=== PATIENT | male | born 1960 | race Caucasian/White ===

== ENCOUNTER 2018-11-08 01:10 | Emergency (ER) | payer BC ==
[2018-11-08] MEDS ORDERED: Sodium Chloride 0.9% 1,000 ML IV ONE ×3 (01:16→03:27)
--- NOTE | 2018-11-08 01:22 | EDM.PDOC ---
ED HPI GENERAL MEDICAL PROBLEM - General Chief Complaint: Abdominal Pain Stated Complaint: INTESTINAL BLOCKAGE Time Seen by Provider: 11/08/18 03:23 - History of Present Illness INITIAL COMMENTS - FREE TEXT/NARRATIVE: HISTORY AND PHYSICAL: History of present illness: Patient 58-year-old male history of ulcerative colitis has had multiple abdominal surgeries including colectomy and presents with concern of nausea vomiting possible bowel obstruction he does have a ostomy he denies fever chills trauma states he had similar episodes in the past denies chest pain or shortness of breath Review of systems: As per history of present illness and below otherwise all systems reviewed and negative. Past medical history: As per history of present illness and as reviewed below otherwise noncontributory. Surgical history: As per history of present illness and as reviewed below otherwise noncontributory. Social history: No reported history of drug or alcohol abuse. Family history: As per history of present illness and as reviewed below otherwise noncontributory. Physical exam: HEENT: Atraumatic, normocephalic, pupils reactive, negative for conjunctival pallor or scleral icterus, mucous membranes moist, throat clear, neck supple, nontender, trachea midline. Lungs: Clear to auscultation, breath sounds equal bilaterally, chest nontender. Heart: S1S2, regular, negative for clicks, rubs, or JVD. Abdomen: Soft, slightly protuberant with nonlocalized tenderness. Negative for masses or hepatosplenomegaly. Negative for costovertebral tenderness. Pelvis: Stable nontender. Genitourinary: Deferred. Rectal: Deferred. Extremities: Atraumatic, negative for cords or calf pain. Neurovascular unremarkable. Neuro: Awake, alert, oriented. Cranial nerves II through XII unremarkable. Cerebellum unremarkable. Motor and sensory unremarkable throughout. Exam nonfocal. Diagnostics: CBC CMP and lipase EKG chest x-ray CT abdomen and pelvis UA Therapeutics: Saline 1 L bolus Impression: 1 abdominal pain Definitive disposition and diagnosis as appropriate pending reevaluation and review of above. - Related Data Allergies Allergy/AdvReac Type Severity Reaction Status Date / Time No Known Allergies Allergy Verified 11/08/18 01:21 Home Meds: Home Meds Levothyroxine 175 mcg PO ACBRK 11/08/18 [History] ED ROS GENERAL - Review of Systems Review Of Systems: ROS reveals no pertinent complaints other than HPI. ED EXAM, GENERAL - Physical Exam Exam: See Below (See dictation) Course - Vital Signs Last Recorded V/S: Last Vital Signs Temp 36.1 C 11/08/18 01:19 Pulse 80 11/08/18 01:19 Resp 18 11/08/18 01:19 BP 123/81 11/08/18 01:19 Pulse Ox 94 L 11/08/18 01:19 - Orders/Labs/Meds Orders: Active Orders 24 hr Category Date Time Status EKG Documentation Completion [RC] STAT Care 11/08/18 01:16 Active UA RFX JEZ AND CULT IF INDIC [URIN] Stat Lab 11/08/18 03:15 Received Nasogastric Orogastric Tube Insertion [OM.PC] Stat Oth 11/08/18 03:14 Ordered Labs: Laboratory Tests 11/08/18 11/08/18 11/08/18 Range/Units 01:25 01:25 01:25 WBC 14.62 H (4.0-11.0) K/uL RBC 5.39 (4.50-5.90) M/uL Hgb 15.9 (13.0-17.0) g/dL Hct 45.4 (38.0-50.0) % MCV 84.2 (80.0-98.0) fL MCH 29.5 (27.0-32.0) pg MCHC 35.0 (31.0-37.0) g/dL RDW Std Deviation 41.3 (28.0-62.0) fl RDW Coeff of Josh 14 (11.0-15.0) % Plt Count 253 (150-400) K/uL MPV 10.30 (7.40-12.00) fL Neut % (Auto) 88.9 H (48.0-80.0) % Lymph % (Auto) 5.0 L (16.0-40.0) % Anderson % (Auto) 6.0 (0.0-15.0) % Eos % (Auto) 0.0 (0.0-7.0) % Baso % (Auto) 0.1 (0.0-1.5) % Neut # (Auto) 13.0 H (1.4-5.7) K/uL Lymph # (Auto) 0.7 (0.6-2.4) K/uL Anderson # (Auto) 0.9 H (0.0-0.8) K/uL Eos # (Auto) 0.0 (0.0-0.7) K/uL Baso # (Auto) 0.0 (0.0-0.1) K/uL Nucleated RBC % 0.0 /100WBC Nucleated RBCs # 0 K/uL INR 0.97 Sodium 143 (136-148) mmol/L Potassium 3.8 (3.5-5.1) mmol/L Chloride 104 (98-107) mmol/L Carbon Dioxide 27.1 (21.0-32.0) mmol/L BUN 21 H (7.0-18.0) mg/dL Creatinine 1.0 (0.8-1.3) mg/dL Est Cr Clr Drug Dosing 81.50 mL/min Estimated GFR (MDRD) > 60.0 ml/min Glucose 129 H (74-106) mg/dL Calcium 10.0 (8.5-10.1) mg/dL Total Bilirubin 0.6 (0.2-1.0) mg/dL AST 21 (15-37) IU/L ALT 37 (14-63) IU/L Alkaline Phosphatase 88 (46-116) U/L Total Protein 7.6 (6.4-8.2) g/dL Albumin 4.0 (3.4-5.0) g/dL Globulin 3.6 (2.6-4.0) g/dL Albumin/Globulin Ratio 1.1 (0.9-1.6) Meds: Medications Discontinued Medications Generic Name Dose Route Start Last Admin Trade Name Theodore PRN Reason Stop Dose Admin Hydromorphone HCl 1 mg 11/08/18 03:15 11/08/18 03:20 Dilaudid IVPUSH 11/08/18 03:16 1 mg ONETIME ONE Administration Sodium Chloride 1,000 mls @ 999 mls/hr 11/08/18 01:16 11/08/18 01:27 Normal Saline IV 11/08/18 02:16 999 mls/hr STAT ONE Administration Departure - Departure Time of Disposition: 03:24 Disposition: DC/Tfer to Acute Hospital 02 Condition: Good Clinical Impression: Bowel obstruction - Discharge Information Forms: ED Department Discharge - My Orders Last 24 Hours: My Active Orders 11/08/18 01:16 EKG Documentation Completion [RC] STAT 11/08/18 03:14 Nasogastric Orogastric Tube Insertion [OM.PC] Stat 11/08/18 03:15 UA RFX JEZ AND CULT IF INDIC [URIN] Stat - Assessment/Plan Last 24 Hours: My Active Orders 11/08/18 01:16 EKG Documentation Completion [RC] STAT 11/08/18 03:14 Nasogastric Orogastric Tube Insertion [OM.PC] Stat 11/08/18 03:15 UA RFX JEZ AND CULT IF INDIC [URIN] Stat
[2018-11-08 01:49] LABS: CHLORIDE,CL 104 mmol/L (98-107); SODIUM,NA 143 mmol/L (136-148)
--- NOTE | 2018-11-08 02:13 | CR ---
Indication: SBO Technique: Chest 1 view Comparison: None Findings/Impression: Cardiovascular and mediastinum: Heart size and vasculature are normal in caliber and appearance. Mediastinum is within normal limits. Lungs and pleural space: No consolidation. A 1 cm ovoid opacity projecting over the lateral left mid lung could be overlying the patient. Correlate clinically and followup. No pleural effusions. Bones and soft tissues: No significant findings. Dictated by Mart Erazo MD @ 11/08/2018 2:11:52 AM Dictated by: Mart Erazo MD @ 11/08/2018 02:12:01 (Electronically Signed)
--- NOTE | 2018-11-08 02:22 | CT ---
INDICATION: Abdominal pain. History of colectomy. TECHNIQUE: CT abdomen and pelvis without contrast. COMPARISON: None available FINDINGS: Lower chest: Unremarkable. Liver: Unremarkable. Spleen: Unremarkable. Pancreas: Unremarkable. Gallbladder and bile ducts: Significant gallbladder distention. No biliary dilatation. Adrenal glands: A 1.1 cm indeterminate right adrenal nodule. Kidneys: No hydronephrosis. A punctate nonobstructing right renal calcifications. No ureteral calcifications seen. GI tract: Post colectomy changes with a right lower quadrant ileostomy. Multiple dilated fluid-filled small bowel segments consistent with mechanical bowel obstruction with a transition point in the anterior pelvis. Vascular structures: Mild arthrosclerotic changes. Lymph nodes: Shotty subcentimeter and borderline mesenteric lymph nodes, nonspecific. Miscellaneous: Small free fluid in the lateral right abdomen adjacent to dilated bowel segments. No free air. Pelvic Organs: Unremarkable. Bones: Unremarkable for age. IMPRESSION: High-grade mechanical bowel obstruction with a transition point in the anterior pelvis. A significantly distended gallbladder. Correlate clinically and, if indicated, with sonography. Post colectomy changes with a right lower quadrant ileostomy. Small right abdominal free fluid. An indeterminate 1.1 cm right adrenal nodule. Recommend followup with adrenal MRI. Dictated by Mart Erazo MD @ 11/08/2018 2:21:07 AM Please note that all CT scans at this facility use dose modulation, iterative reconstruction, and/or weight-based dosing when appropriate to reduce radiation dose to as low as reasonably achievable. Dictated by: Mart Erazo MD @ 11/08/2018 02:21:12 (Electronically Signed)
[2018-11-08] MEDS ORDERED: HYDROmorphone 1 MG/ML Syringe IVPUSH ONE (03:15)
[2018-11-08] MEDS ORDERED: Benzocaine 20% Topical Spray UD MUCMEM ONE (03:37)
== END 2018-11-08 07:45 | disposition left against medical advice (07) ==
LOC: MW.ED 01:10
DX: K56.609 Unspecified intestinal obstruction, unspecified as to partial versus complete obstruction (principal); Z79.899 Other long term (current) drug therapy; Z53.20 Procedure and treatment not carried out because of patient's decision for unspecified reasons
CPT/HCPCS: 36415; 43753; 71045; 74176; 80053; 81003; 85025; 85610; 93005; 96361; 96374; 99285; A9270; J1170; J7040